=== PATIENT | female | born 1995 | race Caucasian/White ===

== ENCOUNTER 2018-02-20 11:56 | Emergency (ER) | payer OTHER ==
[~2018-02-20] VITALS: Ht 160 cm; Wt 64.0 kg
[2018-02-20] MEDS ORDERED: SODIUM CHLORIDE 0.9% 1,000ML IVBOLUS ONE (12:30)
[2018-02-20] MEDS ORDERED: SODIUM CHLORIDE FLUSH 10ML SYR IVF ONE (12:30)
[2018-02-20] MEDS ORDERED: MORPHINE SULFATE 4 MG/ML, 1ML IVPush PRN (12:30)
[2018-02-20] MEDS ORDERED: PROMETHAZINE 25 MG/ML, 1ML IM ONE (12:30)
[2018-02-20] MEDS ORDERED: PROMETHAZINE 25 MG/ML, 1ML ONE (14:59)
[2018-02-20] MEDS ORDERED: MORPHINE SULFATE 4 MG/ML, 1ML ONE (15:46)
[2018-02-20 17:48] VITALS: BP 104/69
== END 2018-02-20 17:50 | disposition home or self-care (01) ==
LOC: ED 15:02
DX: J02.9 Acute pharyngitis, unspecified (principal); R42 Dizziness and giddiness; J45.909 Unspecified asthma, uncomplicated; Z88.8 Allergy status to other drugs, medicaments and biological substances; Z90.89 Acquired absence of other organs
CPT/HCPCS: 96361; 96372; 96374; 99285; J2550; J7030